=== PATIENT | male | born 2000 | race Caucasian/White ===

== ENCOUNTER 2019-02-22 22:32 | Emergency (ER) | payer OTHER ==
[~2019-02-22] VITALS: Ht 170.2 cm; Wt 88.5 kg
[~2019-02-22 22:32] MED LIST: ACET325 PO; AMOCLA875 PO; AMOX50SU PO; ATOM60 PO; CODACEE120; ERYT.5TO OS; OXYACE7.5T PO
== END 2019-02-22 23:36 | disposition home or self-care (01) ==
LOC: ER 22:32
DX: J02.9 Acute pharyngitis, unspecified (principal); F43.10 Post-traumatic stress disorder, unspecified
CPT/HCPCS: 87081; 87430; 99283

== ENCOUNTER 2022-04-15 18:26 | Emergency (ER) | payer OTHER ==
[~2022-04-15] VITALS: Ht 170.2 cm; Wt 81.7 kg
== END 2022-04-15 20:50 | disposition home or self-care (01) ==
LOC: ER 18:26
DX: S61.211A Laceration without foreign body of left index finger without damage to nail, initial encounter (principal); W31.2XXA Contact with powered woodworking and forming machines, initial encounter
CPT/HCPCS: 12001; 90471; 90714; 99282-25

== ENCOUNTER 2022-04-26 18:41 | Emergency (ER) | payer OTHER ==
[~2022-04-26] VITALS: Ht 170.2 cm; Wt 81.7 kg
== END 2022-04-26 19:22 | disposition home or self-care (01) ==
LOC: ER 18:41
DX: S61.211D Laceration without foreign body of left index finger without damage to nail, subsequent encounter (principal); W31.2XXD Contact with powered woodworking and forming machines, subsequent encounter; Z91.048 Other nonmedicinal substance allergy status
CPT/HCPCS: 99281